=== PATIENT | male | born 1995 | race Caucasian/White ===

== ENCOUNTER 2016-06-07 22:12 | Emergency (ER) ==
[2016-06-07] MEDS ORDERED: TYLENOL WITH CODEINE #3 PO ONE (22:30)
[2016-06-07] MEDS ORDERED: FLEXERIL PO ONE (22:30)
--- NOTE | 2016-06-07 22:41 | PROVIDER DOCUMENTATION ---
HPI-Musculoskeletal Pain/Inj - GENERAL Chief Complaint: Fall Stated Complaint: FALL Time Seen by Provider: 06/07/16 22:23 Source: patient, family - HX OF PRESENT ILLNESS-MUSKULOSKELTAL Nature of Presenting Problem: 21 yo M presents to the ER with after tripping up the steps and falling face first. Pt complains of neck pain, back pain, and R wilson pain. Pt has a small skin tear on his R knee and a 1 cm lac on his R eyebrow. Quality of Pain: reports: aching Severity in ED: mild Onset/Duration: just prior to arrival Timing: still present - FALL INJURY Location of Pain/Injury: reports: face (R eyebrow), lower body (R wilson) Reason for Fall: reports: tripped Injury Associated Symptoms: reports: arm pain, back/neck pain, muscle aches - BACK & NECK PAIN/INJURY Back/Neck Pain Location: reports: C-spine Context / Method of Injury: reports: fall Associated Symptoms: reports: denies symptoms Review of Systems - Adult - REVIEW OF SYSTEMS - ADULT Constitutional: denies: see HPI, fever Eyes: reports: no symptoms reported Ears, Nose, Mouth & Throat: reports: no symptoms reported Cardiovascular: denies: chest pain, palpitations Respiratory: denies: cough, shortness of breath Gastrointestinal: denies: abdominal pain, diarrhea, nausea, vomiting Genitourinary: reports: no symptoms reported Musculoskeletal: reports: back pain, muscle aches, neck pain Integumentary: reports: no symptoms reported Neurological: reports: no symptoms reported Psychiatric: reports: no symptoms reported Endocrine: reports: no symptoms reported Hematologic/Lymphatic: reports: no symptoms reported Allergic/Immunologic: reports: no symptoms reported All Other Systems: Reviewed and Negative Past History - Adult - PAST MEDICAL HISTORY-ADULT Review of Records: reports: Old Records Reviewed, Nursing Assessment Review, Medications Reviewed Major Childhood Illnesses: reports: denies history Cardiovascular: reports: denies history Respiratory: reports: denies history Gastrointestinal: reports: denies history Obstetrical/Gynecological: reports: denies history Genitourinary: reports: denies history Musculoskeletal: reports: denies history Neurological: reports: denies history Endocrine/Immune: reports: denies history Other Conditions: reports: denies history - IMMUNIZATION STATUS Childhood Immunizations: See Nurse Assessment Flu Vaccine: See Nurse Assessment Physical Exam-Injury Related - Physical Exam-Injury Related Initial Vital Signs Reviewed: Yes General Appearance: alert, no apparent distress Eyes: PERRL/EOMI, pink conjunctivae Neck: supple, C-spine tenderness Respiratory: chest non-tender, lungs clear Cardiovascular: normal peripheral pulses, regular rate, rhythm Abdominal Exam: normal bowel sounds, non tender, soft Extremity: normal gait, tenderness Integumentary: normal color, warm/dry, laceration (L eyebrow 1 cm) Progress - PLAN OF CARE/RESULTS Progress/Plan/Lab Results: Orders Category Date Time Status HEAD/C-SPINE W/O CONTRAST [CT] Stat Exams 06/07/16 22:30 Taken Acetaminophen with Codeine [Tylenol with Codeine #3] Med 06/07/16 22:30 Discontinued 1 each PO NOW ONE Cyanoacrylate Tissue Adhesive [Dermabond] Med 06/07/16 23:15 Discontinued 1 each .ROUTE .STK-MED ONE Cyclobenzaprine [Flexeril] Med 06/07/16 22:30 Discontinued 10 mg PO NOW ONE Vital Signs Temp Pulse Resp BP Pulse Ox 06/07/16 22:16 98.2 F 84 18 118/62 100 polyester fibers Adverse Reaction (Verified 02/01/16 17:51) RASH No Home Medications 06/07/16 - CT/MRI 1 CT Study: Head Impression: Normal CT Results: no injury or bleeding 2 CT Study: Cervical Spine Impression: Normal CT Results: normal Procedures - LACERATION/WOUND REPAIR/FB Right Eye Wound Location: Other: eyebrow Wound Length: 1cm Wound's Depth, Shape: superficial Wound Explored/Foreign Body: clean Wound Repaired with: Dermabond Departure - Departure Time of Disposition Order: 23:22 DIAGNOSIS: Cervical strain Qualifiers: Encounter type: initial encounter Qualified Code(s): S16.1XXA - Strain of muscle, fascia and tendon at neck level, initial encounter Eyebrow laceration Qualifiers: Encounter type: initial encounter Laterality: right Qualified Code(s): S01.111A - Laceration without foreign body of right eyelid and periocular area, initial encounter Disposition: HOME 01 Certified Medical Emergency: Emergent Condition: Good Additional Instructions: ED Follow Up Instructions: You have been treated by a care provider in the Emergency Department. These instructions are being provided to you so you can have an understanding of how to care for yourself upon discharge. Upon discharge from the Emergency Department, you are responsible for making arrangements for follow-up care by a physician of your choice. Take all prescribed medications as directed. Return to the Emergency Department immediately for any new or worsening symptoms. You may call the Physician Referral phone number at [phone] to obtain a list of Physicians who are taking new patients. Referrals: None,PCP [Primary Care Provider] - Attestation - Scribe Verification/Attestation Scribe:: Jason Bateman Acting as Scribe for:: Vick Paulino Scribe documention review:: This chart was documented by a scribe and accurately reflects the service the provider performed and the decisions made by the provider.
[2016-06-07] MEDS ORDERED: DERMABOND ONE (23:15)
[2016-06-07 23:38] VITALS: BP 107/68
--- NOTE | 2016-06-08 10:27 | Diag Imaging Result Document ---
PROCEDURE NAME: HEAD/C-SPINE W/O CONTRAST - 06/07/2016 CT HEAD AND C-SPINE WITHOUT CONTRAST: COMPARISON: None available. FINDINGS: HEAD: There is no discrete intracranial mass, mass effect, or intracranial hemorrhage. There is no evidence of acute infarct. There is no evidence of hydrocephalus. Surrounding soft tissues are grossly unremarkable. Calvaria is intact. C-SPINE: There is no evidence of fracture, subluxation, or intrinsic osseous lesion. The intervertebral disk spaces appear to be well maintained. The central canal appears to be patent. Surrounding soft tissues are grossly unremarkable. IMPRESSION: 1. No evidence of acute intracranial pathology. 2. No evidence of fracture or other definite acute C-spine injury.
== END 2016-06-07 23:38 | disposition home or self-care (01) ==
LOC: P.ED 22:12
DX: S01.112A Laceration without foreign body of left eyelid and periocular area, initial encounter (principal); S16.1XXA Strain of muscle, fascia and tendon at neck level, initial encounter; M54.2 Cervicalgia; M54.9 Dorsalgia, unspecified; M79.605 Pain in left leg; M79.1 Myalgia; W01.0XXA Fall on same level from slipping, tripping and stumbling without subsequent striking against object, initial encounter
CPT/HCPCS: 70450; 72125